=== PATIENT | male | born 1985 | race American Indian/Alaskan Native ===

== ENCOUNTER 2019-10-22 19:32 | Emergency (ER) | payer SELFPAY ==
[2019-10-22] MEDS ORDERED: diphenhydrAMINE 50 MG/ML VIAL IM ONE (19:55)
[2019-10-22] MEDS ORDERED: ZIPRASIDONE MESYLATE 20 MG VIAL IM ONE ×2 (19:55→19:56)
[2019-10-22] MEDS ORDERED: WATER FOR INJ Sterile (PF) 10 ML ONE (19:56)
[2019-10-22] MEDS ORDERED: diphenhydrAMINE 50 MG/ML VIAL ONE (19:57)
--- NOTE | 2019-10-22 20:06 | Emergency Department Report ---
<KATE HILL - Last Filed: 10/23/19 02:50> ED Psych HPI - General Chief Complaint: Psych Stated Complaint: PSYCH Time Seen by Provider: 10/22/19 19:44 - Related Data Home Medications Medication Instructions Recorded Confirmed Last Taken Unobtainable 10/23/19 10/23/19 Unknown Allergies Allergy/AdvReac Type Severity Reaction Status Date / Time No Known Allergies Allergy Unverified 10/22/19 19:41 ED Past Medical Hx - Medications Home Medications: Home Medications Medication Instructions Recorded Confirmed Last Taken Type Unobtainable 10/23/19 10/23/19 Unknown History ED Course - Reevaluation(s) Reevaluation #2: 10/23/19 02:50 Creatinine kinase level is downtrending. It will continue to decrease on its own with oral hydration. Renal function acceptable at this time. Patient does not meet definition criteria at this time for rhabdomyolysis. He does not appear to have an immediate medical contraindication to psychiatric evaluation, consultation and placement at this time. ED Medical Decision Making - Lab Data Result diagrams: 10/22/19 20:12 10/22/19 20:12 ED Disposition Clinical Impression: Psychoses Disposition: [id number]/TX-65 PSY HOSP/PSY UNIT Condition: Stable <TANYA JACKSON - Last Filed: 10/26/19 02:19> ED Psych HPI - General Source: patient, police Mode of arrival: Ambulatory - History of Present Illness Initial Comments: 34-year-old male with a past medical history of bipolar disorder, schizophrenia, and PTSD presents to the hospital after being brought in by the police officers for walking [place] [address] [place]. Police had apprehended the patient but he tried to walk into traffic. Patient is brought into the ER in handcuffs and is talking constantly. 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 Patient denies any physical complaints and states he is not currently taking any medications. ED Review of Systems ROS: Stated complaint: PSYCH Other details as noted in HPI Comment: All other systems reviewed and negative ED Past Medical Hx - Past Medical History Previous Medical History?: Yes Hx Psychiatric Treatment: Yes (Bipolar, Schizophrenia, PTSD) - Surgical History Past Surgical History?: No - Social History Smoking Status: Current Every Day Smoker ED Physical Exam - General Limitations: No Limitations - Other Other exam information: General: No acute distress Head: Atraumatic Eyes: normal appearance ENT: Moist mucous membranes Neck: Normal appearance, no midline tenderness Chest: Clear to auscultation bilaterally CV: Tachycardic regular rhythm Abdomen: Soft, normal bowel sounds, nontender, nondistended, no rebound or guarding Back: Normal inspection Extremity: Normal inspection, full range of motion Neuro: Alert O x 3, no facial asymmetry, speech clear, no gross motor sensory deficit Psych: Agitated, hyperverbal Skin: No rash ED Course Vital Signs 10/22/19 10/22/19 10/22/19 19:38 19:52 20:00 Temperature 99.9 F H 99.9 F H Pulse Rate 126 H 126 H Respiratory 20 20 20 Rate Blood Pressure 162/93 162/93 [Left] O2 Sat by Pulse 99 97 Oximetry 10/22/19 10/23/19 10/23/19 21:00 02:04 08:15 Temperature 99.5 F 98.2 F 98.3 F Pulse Rate 86 59 L 86 Respiratory 18 16 17 Rate Blood Pressure 147/90 110/67 112/61 [Left] O2 Sat by Pulse 97 98 100 Oximetry 10/23/19 10/23/19 10/23/19 08:24 19:30 20:00 Temperature 98.2 F 98.9 F Pulse Rate 82 77 Respiratory 17 18 20 Rate Blood Pressure 141/86 138/80 [Left] O2 Sat by Pulse 100 97 Oximetry 10/24/19 02:44 Temperature 97.6 F Pulse Rate 90 Respiratory 16 Rate Blood Pressure 126/85 [Left] O2 Sat by Pulse 99 Oximetry - Reevaluation(s) Reevaluation #1: 10/23/19 01:11 tachycardia improved after sedation meds (geodon and benadryl). 3L NS ordered for elevated ck pending at this time pt has not urinated therefore ua collection pending at this time. Reevaluation #3: 10/23/19 23:48 repeat labs cbc, ck was ordered by day shift attending Dr ware. They were never performed due to pt's constant refusal. ? needed due to [facility] request. labs preformed last night show downtrend in ck. pt provided po kcl for mild hypokalemia. pt will be medicated so that labs can be drawn for medical clearance. ED Medical Decision Making - Lab Data Result diagrams: 10/22/19 20:12 10/24/19 01:24 - Medical Decision Making po kcl given for mild hypokalemia IVF for elevated ck MH eval pending. - Differential Diagnosis Acute drug intoxication, psychosis, mental health disorder Critical Care Time: No Critical care attestation.: If time is entered above; I have spent that time in minutes in the direct care of this critically ill patient, excluding procedure time. ED Disposition Is pt being admited?: No
[2019-10-22 20:35] LABS: Basophils # (Auto) 0.1 K/mm3 (0.0-0.1); Basophils % (Auto) 1.3 % (0.0-1.8); Eosinophils % (Auto) 0.3 % (0.0-4.3); Hematocrit 42.6 % (35.5-45.6); Hemoglobin 14.2 gm/dl (11.8-15.2); Lymphocytes # (Auto) 1.9 K/mm3 (1.2-5.4); Lymphocytes % (Auto) 21.5 % (13.4-35.0); Mean Corpuscular HGB Conc 33 % (32-34); Mean Corpuscular Volume 91 fl (84-94); Monocytes # (Auto) 0.7 K/mm3 (0.0-0.8); Monocytes % (Auto) 7.7 % (0.0-7.3); Platelet Count 267 K/mm3 (140-440); Red Cell Distribution Width 13.8 % (13.2-15.2)
[2019-10-22 20:56] LABS: BUN/Creatinine Ratio 8; Blood Urea Nitrogen 8 mg/dL (9-20); Calcium 9.7 mg/dL (8.4-10.2); Hemolysis Index 5
[2019-10-22] MEDS ORDERED: SODIUM CHLORIDE 0.9% 1000 ML 1,000 ML IV ONE ×3 (21:27→22:38)
[2019-10-23] MEDS ORDERED: POTASSIUM CHLORIDE ER 20 MEQ TAB PO ONE (01:13)
[2019-10-23] MEDS ORDERED: SODIUM CHLORIDE 0.9% 1000 ML 1,000 ML IV ONE (01:13)
[2019-10-23 06:18] LABS: Bilirubin,Urine NEG (Negative); Blood,Urine NEG (Negative); Color,Urine Yellow (Yellow); Hyaline Casts,Urine 2 /LPF; Mucus,Urine 2+ /HPF; Protein,Urine <15 mg/dL mg/dL (Negative); Urobilinogen,Urine < 2.0 mg/dL (<2.0)
[2019-10-23 06:23] LABS: Amphetamine Screen,Urine PRESUMPTIVE NEGATIVE; Benzodiazepines Screen,Urine PRESUMPTIVE NEGATIVE; Cocaine Screen,Urine PRESUMPTIVE NEGATIVE; Methadone Screen,Urine PRESUMPTIVE NEGATIVE; Opiate Screen,Urine PRESUMPTIVE NEGATIVE
[2019-10-23 06:43] LABS: Cannabinoid Screen,Urine PRESUMPTIVE POSITIVE
[2019-10-23] MEDS ORDERED: ZIPRASIDONE MESYLATE 20 MG VIAL IM ONE ×2 (12:31→23:46)
[2019-10-23] MEDS ORDERED: LORazepam 2 MG/ML VIAL IM ONE (12:31)
[2019-10-23] MEDS ORDERED: HYDROmorphone 1 MG/1 ML INJ ONE (19:27)
[2019-10-23] MEDS ORDERED: SODIUM CHLORIDE 0.9% 250ML 250 ML ONE (20:01)
[2019-10-23] MEDS ORDERED: diphenhydrAMINE 50 MG/ML VIAL IM ONE (23:46)
[2019-10-24 02:24] LABS: BUN/Creatinine Ratio 9; Blood Urea Nitrogen 8 mg/dL (9-20); Calcium 8.9 mg/dL (8.4-10.2); Creatine Kinase MB 17.8 ng/mL (0.0-4.0); Hemolysis Index 1
[2019-10-25 12:10] VITALS: BP 126/85
== END 2019-10-24 10:02 ==
LOC: EEVIPCON 19:32 → ED 19:32
DX: F29 Unspecified psychosis not due to a substance or known physiological condition (principal); F25.0 Schizoaffective disorder, bipolar type; F17.200 Nicotine dependence, unspecified, uncomplicated
CPT/HCPCS: 36415; 80048; 80307; 81001; 82550; 82553; 85025; 96372; 99285; J1170; J1200; J2060; J3486; J7030; J7050; 80320; G0480